=== PATIENT | female | born 1995 ===

== ENCOUNTER 2024-08-10 20:38 | Emergency (ER) | payer MEDICAID ==
[~2024-08-10] VITALS: Ht 162.6 cm; Wt 70.1 kg
[2024-08-10 20:58] VITALS: BP 142/65; PULSE 69; O2SAT 99
--- NOTE | 2024-08-10 22:09 | Physician Documentation ---
HPI ~ General Chief Complaint: Medication Refill Stated Complaint: BACK PAIN/MED REFILL Time Seen by MD: 21:48 History of Present Illness HPI Comments Patient is seen today with complaints of chronic low back pain. Patient states she is from out of town and took her last pain pill which is oxycodone 5/325 mg 3 times a day. Patient states her pain management doctor recently increase her from once a day to three tablets a day and her pharmacy in her hometown refused of refill that prescription just prior to leaving on her vacation here which is about 10 hours from home. Patient states she has significant low back pain and is seeking relief today. She has no other concern or complaint at this time. She denies any saddle anesthesia or changes in bowel or bladder habits. Medication Reconciliation Allergies: Coded Allergies: latex (Verified Allergy, Unknown, hives, 08/10/24) Review of Systems Constitutional: Denies: chills, fever, weakness Eyes: Denies: pain, blurred vision ENT: Denies: ear pain, nose pain, throat pain, mouth pain Respiratory: Denies: cough, shortness of breath Cardiovascular: Denies: chest pain, palpitations Gastrointestinal: Denies: abdominal pain, nausea, vomiting Genitourinary: Denies: burning, dysuria Female Genitalia: Denies: vaginal discharge, pelvic pain Neurological: Denies: headache, dizziness Musculoskeletal: Denies: pain, swelling Integumentary: Denies: rash, lesions Allergic/Immunologic: Denies: hives, itching Hematologic/Lymphatic: Denies: no symptoms reported Psychiatric: Denies: depression, anxiety Physical Exam Physical Exam Vital Signs: Temperature: 96.8, Source: Temporal, Heart Rate: 69, Respiratory Rate: 15, BP: 142/65, Pulse Oximetry: 99, Weight: 70.100 Physical Exam General: Awake and Alert, no acute distress. HEENT: Conjunctiva pink, Sclera clear, Mucus Membranes moist. Neck: Supple without masses and tenderness. Resp: Unlabored. Lungs clear to auscultation bilaterally. Heart: Regular Rate and rhythm, normal S1 and S2 without murmur, rub or gallop. Musculoskeletal: Patient on exam does have decreased range of motion of the lumbar spine in all planes of motion. Patient is neurovascularly intact distally. Motor function is intact distally. Extremities: No cyanosis,clubbing or edema. Skin: Warm and Dry. Progress Results/Orders Results/Orders Vital Signs 08/10/24 20:58 Temp 96.8 Pulse 69 Resp 15 B/P (MAP) 142/65 Pulse Ox 99 Medical Decision Making Findings Patient is seen today with complaints of chronic low back pain. Patient states she is from out of town and took her last pain pill which is oxycodone 5/325 mg 3 times a day. Patient states her pain management doctor recently increase her from once a day to three tablets a day and her pharmacy in her hometown refused of refill that prescription just prior to leaving on her vacation here which is about 10 hours from home. Patient states she has significant low back pain and is seeking relief today. She has no other concern or complaint at this time. She denies any saddle anesthesia or changes in bowel or bladder habits. Dose of Toradol 30 mg IM and Percocet 10/325 mg by mouth administered to patient in the ED tonight. Patient will call her pain management doc in the morning to discuss the next best appropriate action. Patient declined prescription of buprenorphine tonight. Patient will return to ED with any worsening, concerning or changing symptoms. Departure Disposition: HOME / SELF CARE / HOMELESS Impression: Primary Impression: Chronic low back pain Qualified Codes: M54.50 - Low back pain, unspecified; G89.29 - Other chronic pain Condition: Improved Discharge Instructions: Chronic Back Pain, [id number] Additional Instructions: Dose of Toradol 30 mg IM and Percocet 10/325 mg by mouth administered to patient in the ED tonight. Patient will call her pain management doc in the morning to discuss the next best appropriate action. Patient declined prescription of buprenorphine tonight. Patient will return to ED with any worsening, concerning or changing symptoms. Referrals: NO PRIMARY CARE PROVIDER (PCP) Signature Scribe Signature: No scribe Attestation: No scribe ALEXIS BECK August 10, 2024 22:09
[2024-08-10] MEDS: oxyCODONE/APAP 10/325mg tablet PO STA (22:15)
[2024-08-10 22:16] VITALS: RESP 18
[2024-08-10] MEDS: ketorolac trometh 30MG/ML vial 30 MG/ML VIAL IM STA (22:16)
[2024-08-10 22:25] VITALS: TEMP 96.8
== END 2024-08-10 22:26 | disposition home or self-care (01) ==
LOC: ER 20:39
DX: G89.29 Other chronic pain (principal); M54.50 Low back pain, unspecified
CPT/HCPCS: 96372; 99283; J1885